=== PATIENT | female | born 1955 | race Caucasian/White ===

== ENCOUNTER 2020-04-21 14:06 | Outpatient (CLI) | payer MEDICARE, OTHER ==
[~2020-04-21] VITALS: Ht 154.9 cm; Wt 106.6 kg
[~2020-04-21 14:06] MED LIST: ARMOUR THYROID30 MG PO; BUPROPION XL300 MG PO; CELEBREX200 MG PO; IBUPROFEN600 MG PO; LIPITOR10 MG PO; NEXIUM20 MG PO
--- NOTE | 2020-04-21 20:14 | Consultation ---
DATE OF CONSULTATION: 04/21/2020 GASTROENTEROLOGY CONSULTATION CONSULTING PHYSICIAN: Junior Rahman MD. CHIEF COMPLAINT: Referral for abdominal pain. HISTORY OF PRESENT ILLNESS: This is a very pleasant 65-year-old female with past medical history of hypertension, history of colonic polyp, and diverticulosis/diverticulitis, has been having complaint of severe cough, acid reflux, had an endoscopy and colonoscopy in 2017. Colonoscopy was done with clean prep and she had one polyp. Also, had an esophagogram done, which showed a moderate esophageal dysmotility, and she is here for complaint of chronic cough. PAST MEDICAL HISTORY: 1. History of arthritis. 2. Obesity. 3. Gastritis. 4. Esophageal motility disorder. 5. Colonic polyp. 6. Diverticulosis/diverticulitis. 7. Hypothyroidism. 8. Vitamin D deficiency. ALLERGIES: She has allergies to mostly pollens. No obvious allergies to medication. SOCIAL HISTORY: The patient denies any tobacco, alcohol, or drug abuse. FAMILY HISTORY: Noncontributory. REVIEW OF SYSTEMS: A 10-point review of systems was performed and pertinent positives in HPI. PHYSICAL EXAMINATION: VITAL SIGNS: Temperature 97.4, blood pressure 139/81, pulse 94, respirations 20. Height is 5 feet 1 inch. Weight is 235. HEENT: Normocephalic and atraumatic. Sclerae are anicteric. NECK: Supple. No evidence of obvious lymphadenopathy. CARDIOVASCULAR: Regular rate and rhythm. Plus S1-S2. LUNGS: Clear to auscultation bilaterally. ABDOMEN: Positive bowel sounds. Soft and nontender. No rebound. No guarding. No peritoneal sign. EXTREMITIES: No cyanosis, no clubbing, no edema. ASSESSMENT: This is a 65-year-old female with chronic GERD symptoms not responding to Nexium 40 mg daily, also some component of esophageal dysmotility, and some component of obesity. PLAN: I recommend the patient to lose a lot of weight. The patient to have to clean her room to clean the air so she does not get cough from the pollens. Add baclofen 10 mg at bedtime. The patient was offered to have an endoscopy and colonoscopy, but at this time she wants to wait. Junior Melva Rahman DR: BRANDYN JOB#: [id number] CC:
== END 2020-04-21 15:21 | disposition home or self-care (01) ==
LOC: PAN 14:06
DX: R10.9 Unspecified abdominal pain (principal); I10 Essential (primary) hypertension; Z86.010 Personal history of colon polyps; R05 Cough; E03.9 Hypothyroidism, unspecified; K21.9 Gastro-esophageal reflux disease without esophagitis; E66.9 Obesity, unspecified; Z79.899 Other long term (current) drug therapy
CPT/HCPCS: 99212